=== PATIENT | male | born 1995 | race Caucasian/White ===

== ENCOUNTER 2020-10-12 13:51 | Emergency (ER) | payer OTHER ==
[~2020-10-12] VITALS: Ht 182.9 cm; Wt 72.6 kg
[2020-10-12] MEDS ORDERED: Percocet 5-3251 EACH PO (15:29)
== END 2020-10-12 15:54 | disposition home or self-care (01) ==
LOC: ER 13:51
DX: S30.0XXA Contusion of lower back and pelvis, initial encounter (principal); S70.12XA Contusion of left thigh, initial encounter; W22.8XXA Striking against or struck by other objects, initial encounter; Y92.89 Other specified places as the place of occurrence of the external cause; Y99.0 Civilian activity done for income or pay
CPT/HCPCS: 73502; 73562-LT; 96374; 96376; 99284-25; J1170

== ENCOUNTER → 2023-05-30 | Outpatient (CLI) | payer OTHER ==
[~2023-05-30] MED LIST: Percocet 5-3251 EACH PO
== END | disposition home or self-care (01) ==
LOC: PLD 14:34 → LAB SHORT 14:34 → LAB 14:34
DX: L23.9 Allergic contact dermatitis, unspecified cause (principal)
CPT/HCPCS: 88305; 88312